=== PATIENT | male | born 1980 | race Caucasian/White ===

== ENCOUNTER 2017-05-16 17:35 | Emergency (ER) | payer SELFPAY | END 2017-05-16 20:00 | disposition left against medical advice (07) | LOC: FTE 17:35 | DX: Z53.21 Procedure and treatment not carried out due to patient leaving prior to being seen by health care provider (principal) ==

== ENCOUNTER 2017-05-16 23:29 | Emergency (ER) | payer MEDICAID ==
[2017-05-17] MEDS: LORAZEPAM 2 MG INJ IM (00:45)
[2017-05-17 01:23] LABS: ADD MAN DIFF? NO
[2017-05-17 01:25] LABS: ABNORMAL IP MESSAGE 1; BASOPHIL # 0.1 10^3/ul (0.0-0.1); BASOPHILS % 0.9 % (0.0-2.0); EOSINOPHILS # 0.3 10^3/ul (0.0-0.5); EOSINOPHILS % 2.7 % (0.0-7.0); HEMATOCRIT 44.9 % (42.0-52.0); HEMOGLOBIN 14.9 g/dl (14.0-18.0); LYMPHOCYTES # 5.5 10^3/ul (0.8-2.9); LYMPHOCYTES % 52.1 % (15.0-51.0); MEAN CORPUSCULAR HEMOGLOBIN 31.1 pg (29.0-33.0); MEAN CORPUSCULAR HGB CONC 33.2 g/dl (32.0-37.0); MEAN CORPUSCULAR VOLUME 93.7 fl (82.0-101.0); MEAN PLATELET VOLUME 9.2 fl (7.4-10.4); MONOCYTES % 9.4 % (0.0-11.0); NEUTROPHIL # 3.4 10^3/ul (1.6-7.5); NEUTROPHILS % 32.6 % (39.0-77.0); PLATELET COUNT 350 10^3/UL (140-415); POSITIVE DIFF @See below; RED BLOOD COUNT 4.79 10^6/ul (4.70-6.10); RED CELL DISTRIBUTION WIDTH 12.5 % (11.5-14.5)
[2017-05-17 01:25] LABS: WHITE BLOOD COUNT 10.5 10^3/ul (4.8-10.8)
[2017-05-17 01:31] LABS: AMPHETAMINE/METHAMPHETAMINE Negative (NEGATIVE)
[2017-05-17 01:32] LABS: BARBITURATES Negative (NEGATIVE); BENZODIAZEPINES Negative (NEGATIVE); CANNABINOIDS Negative (NEGATIVE); COCAINE Negative (NEGATIVE); OPIATES Negative (NEGATIVE)
[2017-05-17 01:43] LABS: ALANINE AMINOTRANSFERASE 43 IU/L (13-69); ALBUMIN 4.7 g/dl (3.3-4.9); ALBUMIN/GLOBULIN RATIO 1.14; ALKALINE PHOSPHATASE 128 IU/L (42-121); ANION GAP 19 (8-16); ASPARTATE AMINO TRANSFERASE 42 IU/L (15-46); BLOOD UREA NITROGEN 23 mg/dl (7-20); CALCIUM 9.1 mg/dl (8.4-10.2); CARBON DIOXIDE 22 mmol/L (21-31); CHLORIDE 110 mmol/L (97-110); CREATININE 0.95 mg/dl (0.61-1.24); GLUCOSE 110 mg/dl (70-220); POTASSIUM 3.8 mmol/L (3.5-5.1); SODIUM 147 mmol/L (135-144); TOTAL PROTEIN 8.8 g/dl (6.1-8.1)
[2017-05-17 02:38] LABS: ACETAMINOPHEN < 10.0 ug/ml (10.0-30.0); SALICYLATE < 1.0 mg/dl (5.0-30.0)
== END 2017-05-17 17:40 ==
LOC: E/R 23:29
DX: F10.920 Alcohol use, unspecified with intoxication, uncomplicated (principal)
CPT/HCPCS: 36415; 80053; 80306; 80307; 85025; 96372; 99285-25

== ENCOUNTER 2017-08-18 02:00 | Emergency (ER) | payer SELFPAY, MEDICAID | END 2017-08-18 02:15 | disposition left against medical advice (07) | LOC: E/R 02:00 | DX: Z53.21 Procedure and treatment not carried out due to patient leaving prior to being seen by health care provider (principal) ==

== ENCOUNTER 2017-09-04 22:04 | Emergency (ER) | payer MEDICAID ==
[2017-09-04] MEDS: HALOPERIDOL 5 MG INJ IM (23:25)
[2017-09-04] MEDS: DIPHENHYDRAMINE 50 MG INJ IM (23:42)
[2017-09-04 23:56] LABS: ADD MAN DIFF? NO
[2017-09-05] LABS: WHITE BLOOD COUNT 9.8 10^3/ul (4.8-10.8)
[2017-09-05] LABS: BASOPHIL # 0.1 10^3/ul (0.0-0.1); BASOPHILS % 0.6 % (0.0-2.0); EOSINOPHILS # 0.1 10^3/ul (0.0-0.5); EOSINOPHILS % 1.3 % (0.0-7.0); HEMATOCRIT 46.8 % (42.0-52.0); HEMOGLOBIN 15.7 g/dl (14.0-18.0); LYMPHOCYTES # 4.8 10^3/ul (0.8-2.9); LYMPHOCYTES % 49.1 % (15.0-51.0); MEAN CORPUSCULAR HEMOGLOBIN 30.5 pg (29.0-33.0); MEAN CORPUSCULAR HGB CONC 33.5 g/dl (32.0-37.0); MEAN CORPUSCULAR VOLUME 91.1 fl (82.0-101.0); MEAN PLATELET VOLUME 9.8 fl (7.4-10.4); MONOCYTES % 9.9 % (0.0-11.0); NEUTROPHIL # 3.8 10^3/ul (1.6-7.5); NEUTROPHILS % 38.6 % (39.0-77.0); PLATELET COUNT 310 10^3/UL (140-415); RED BLOOD COUNT 5.14 10^6/ul (4.70-6.10); RED CELL DISTRIBUTION WIDTH 11.9 % (11.5-14.5)
[2017-09-05 00:16] LABS: ALANINE AMINOTRANSFERASE 41 IU/L (13-69); ALBUMIN 4.5 g/dl (3.3-4.9); ALBUMIN/GLOBULIN RATIO 1.07; ALKALINE PHOSPHATASE 99 IU/L (42-121); ANION GAP 21 (8-16); ASPARTATE AMINO TRANSFERASE 32 IU/L (15-46); BILIRUBIN,INDIRECT 0.1 mg/dl (0-1.1); BILIRUBIN,TOTAL 0.1 mg/dl (0.2-1.3); BLOOD UREA NITROGEN 16 mg/dl (7-20); CALCIUM 9.2 mg/dl (8.4-10.2); CARBON DIOXIDE 23 mmol/L (21-31); CHLORIDE 112 mmol/L (97-110); CREATININE 1.22 mg/dl (0.61-1.24); GLUCOSE 123 mg/dl (70-220); SODIUM 152 mmol/L (135-144); TOTAL PROTEIN 8.7 g/dl (6.1-8.1)
[2017-09-05 00:52] LABS: ACETAMINOPHEN < 10.0 ug/ml (10.0-30.0)
[2017-09-05 00:53] LABS: SALICYLATE < 1.0 mg/dl (5.0-30.0)
== END 2017-09-05 18:53 | disposition home or self-care (01) ==
LOC: E/R 22:04
DX: F10.920 Alcohol use, unspecified with intoxication, uncomplicated (principal); R45.851 Suicidal ideations; R40.2142 Coma scale, eyes open, spontaneous, at arrival to emergency department; R40.2242 Coma scale, best verbal response, confused conversation, at arrival to emergency department; R40.2362 Coma scale, best motor response, obeys commands, at arrival to emergency department
CPT/HCPCS: 80053; 80307; 85025; 96372; 99284-25

== ENCOUNTER 2018-03-03 17:09 | Emergency (ER) | payer MEDICAID ==
[2018-03-03] MEDS: STERILE WATER 1L IRRIG BTL IRR (17:11)
[2018-03-03 17:41] LABS: ADD MAN DIFF? NO
[2018-03-03 17:45] LABS: BASOPHIL # 0.1 10^3/ul (0.0-0.1); BASOPHILS % 0.6 % (0.0-2.0); EOSINOPHILS # 0.2 10^3/ul (0.0-0.5); EOSINOPHILS % 2.5 % (0.0-7.0); HEMATOCRIT 47.7 % (42.0-52.0); LYMPHOCYTES # 3.8 10^3/ul (0.8-2.9); LYMPHOCYTES % 45.5 % (15.0-51.0); MEAN CORPUSCULAR HGB CONC 33.5 g/dl (32.0-37.0); MEAN CORPUSCULAR VOLUME 89.3 fl (82.0-101.0); MEAN PLATELET VOLUME 9.6 fl (7.4-10.4); MONOCYTE # 0.5 10^3/ul (0.3-0.9); MONOCYTES % 6.4 % (0.0-11.0); NEUTROPHIL # 3.7 10^3/ul (1.6-7.5); NEUTROPHILS % 44.6 % (39.0-77.0); PLATELET COUNT 304 10^3/UL (140-415); RED BLOOD COUNT 5.34 10^6/ul (4.70-6.10)
[2018-03-03 17:45] LABS: WHITE BLOOD COUNT 8.3 10^3/ul (4.8-10.8)
[2018-03-03] MEDS: DIPHENHYDRAMINE 50 MG INJ IM (17:45)
[2018-03-03] MEDS: HALOPERIDOL 5 MG INJ IM (17:45)
[2018-03-03 18:06] LABS: ALANINE AMINOTRANSFERASE 20 IU/L (13-69); ALBUMIN 4.9 g/dl (3.3-4.9); ALBUMIN/GLOBULIN RATIO 1.11; ALKALINE PHOSPHATASE 125 IU/L (42-121); ANION GAP 17 (5-13); ASPARTATE AMINO TRANSFERASE 31 IU/L (15-46); BILIRUBIN,INDIRECT 0.4 mg/dl (0-1.1); BILIRUBIN,TOTAL 0.4 mg/dl (0.2-1.3); BLOOD UREA NITROGEN 14 mg/dl (7-20); CALCIUM 9.7 mg/dl (8.4-10.2); CARBON DIOXIDE 22 mmol/L (21-31); CHLORIDE 107 mmol/L (97-110); CREATININE 0.86 mg/dl (0.61-1.24); Estimated GFR > 60 mL/min (>60); GLUCOSE 117 mg/dl (70-220); POTASSIUM 3.6 mmol/L (3.5-5.1); SODIUM 146 mmol/L (135-144); TOTAL PROTEIN 9.3 g/dl (6.1-8.1)
[2018-03-03 18:07] LABS: ACETAMINOPHEN < 10.0 ug/ml (10.0-30.0); SALICYLATE < 1.0 mg/dl (5.0-30.0)
[2018-03-03 18:22] LABS: ADD UMIC YES; UR ASCORBIC ACID NEGATIVE (NEGATIVE); UR BILIRUBIN (Dip) NEGATIVE (NEGATIVE); UR BLOOD (Dip) 1+ mg/dL (NEGATIVE); UR CLARITY CLEAR (CLEAR); UR COLOR COLORLESS (YELLOW); UR GLUCOSE (Dip) NEGATIVE (NEGATIVE); UR KETONES (Dip) NEGATIVE (NEGATIVE); UR LEUKOCYTE ESTERASE (Dip) NEGATIVE Leu/ul (NEGATIVE); UR NITRITE (Dip) NEGATIVE (NEGATIVE); UR RBC 0 /HPF (0-5); UR SPECIFIC GRAVITY (Dip) 1.002 (1.003-1.030); UR TOTAL PROTEIN (Dip) NEGATIVE (NEGATIVE); UR UROBILINOGEN (Dip) NEGATIVE (NEGATIVE); UR WBC 0 /HPF (0-5)
[2018-03-03 18:36] LABS: AMPHETAMINE/METHAMPHETAMINE Negative (NEGATIVE); BARBITURATES Negative (NEGATIVE); BENZODIAZEPINES Negative (NEGATIVE); CANNABINOIDS Negative (NEGATIVE); COCAINE Negative (NEGATIVE); OPIATES Negative (NEGATIVE)
[2018-03-03] MEDS: DIPHTH/TET/ACEL PERTUSS (ADULT) 0.5 ML VIAL IM* (18:39)
[2018-03-04] MEDS ORDERED: HALOPERIDOL 5 MG TAB PO (01:00)
[2018-03-04] MEDS: SOD CHLORIDE 0.9% 1,000 ML IV (01:15)
== END 2018-03-04 08:10 ==
LOC: E/R 03-04 08:10
DX: T14.91XA Suicide attempt, initial encounter (principal); F33.9 Major depressive disorder, recurrent, unspecified; F10.10 Alcohol abuse, uncomplicated; W26.9XXA Contact with unspecified sharp object(s), initial encounter; Y92.9 Unspecified place or not applicable; Z23 Encounter for immunization
CPT/HCPCS: 12001; 36415; 80053; 80307; 81001; 85025; 90471; 90715; 96372; 99285-25

== ENCOUNTER 2018-05-02 17:06 | Emergency (ER) | payer MEDICAID ==
[2018-05-02 17:41] LABS: HEMATOCRIT 46.7 % (42.0-52.0); HEMOGLOBIN 15.6 g/dl (14.0-18.0); MEAN CORPUSCULAR HEMOGLOBIN 29.9 pg (29.0-33.0); MEAN CORPUSCULAR HGB CONC 33.4 g/dl (32.0-37.0); MEAN CORPUSCULAR VOLUME 89.6 fl (82.0-101.0); MEAN PLATELET VOLUME 9.1 fl (7.4-10.4); PLATELET COUNT 360 10^3/UL (140-415); RED BLOOD COUNT 5.21 10^6/ul (4.70-6.10)
[2018-05-02 17:41] LABS: WHITE BLOOD COUNT 8.3 10^3/ul (4.8-10.8)
[2018-05-02 17:45] LABS: ADD MAN DIFF? YES
[2018-05-02 18:14] LABS: ALANINE AMINOTRANSFERASE 26 IU/L (13-69); ALBUMIN/GLOBULIN RATIO 1.21; ALKALINE PHOSPHATASE 143 IU/L (42-121); ANION GAP 18 (5-13); ASPARTATE AMINO TRANSFERASE 47 IU/L (15-46); BILIRUBIN,INDIRECT 0.2 mg/dl (0-1.1); BILIRUBIN,TOTAL 0.2 mg/dl (0.2-1.3); BLOOD UREA NITROGEN 15 mg/dl (7-20); CALCIUM 9.2 mg/dl (8.4-10.2); CARBON DIOXIDE 21 mmol/L (21-31); CHLORIDE 106 mmol/L (97-110); CREATININE 0.97 mg/dl (0.61-1.24); Estimated GFR > 60 mL/min (>60); GLUCOSE 101 mg/dl (70-220); POTASSIUM 3.8 mmol/L (3.5-5.1); SODIUM 145 mmol/L (135-144); TOTAL PROTEIN 9.1 g/dl (6.1-8.1)
[2018-05-02 18:20] LABS: ACETAMINOPHEN < 10.0 ug/ml (10.0-30.0); SALICYLATE < 1.0 mg/dl (5.0-30.0)
[2018-05-02] MEDS: DIPHENHYDRAMINE 50 MG INJ IM (18:38)
[2018-05-02] MEDS: HALOPERIDOL 5 MG INJ IM (18:38)
[2018-05-02] MEDS: DEXTROSE 5%-LR 1,000 ML IV (18:38)
[2018-05-02 18:40] LABS: BASOPHIL #M 0.1 10^3/ul (0.0-0.0); BASOPHILS % (M) 2 % (0-2); EOSINOPHILS % (M) 2 % (0-7); GIANT THROMBO% (M) 1 % (0-0); LYMPHOCYTES #M 5.4 10^3/ul (0.8-2.9); LYMPHOCYTES % (M) 66 % (15-51); METAMYELOCYTES #M 0.1 10^3/ul (0.0-0.0); METAMYELOCYTES %M 2 % (0-0); MONOCYTE #M 0.3 10^3/ul (0.3-0.9); MONOCYTES % (M) 4 % (0-11); MYELOCYTES % (M) 1 % (0-0); PLATELET ESTIMATE NORMAL; REACTIVE LYMPHOCYTES #M 0.1 10^3/ul (0.0-0.0); REACTIVE LYMPHOCYTES% (M) 2 % (0-0); SEGMENTED NEUTROPHILS (M) % 21 % (39-77); SMUDGE%M 3 % (0-0)
[2018-05-02] MEDS ORDERED: MULTIVITAMINS 10 ML, THIAMINE 100 MG, FOLIC ACID 1 MG, MAGNESIUM SULFATE 2 GM in SOD CH... IV (19:30)
[2018-05-02] MEDS: MULTIVITAMINS 10 ML, FOLIC ACID 1 MG, MAGNESIUM SULFATE 2 GM in SOD CHLORIDE 0.9% 1,000 ML IV (19:40)
[2018-05-03] MEDS: DEXTROSE 5%-LR 1,000 ML IV ×4 (09:00→15:00)
[2018-05-03] MEDS: LORAZEPAM 2 MG INJ IV (21:47)
[2018-05-03] MEDS ORDERED: LORAZEPAM 1 MG TAB PO (22:00)
[2018-05-04 08:29] LABS: ETHANOL < 10.0 mg/dl (0-0)
== END 2018-05-04 10:44 | disposition home or self-care (01) ==
LOC: E/R 17:06
DX: R45.851 Suicidal ideations (principal); F10.920 Alcohol use, unspecified with intoxication, uncomplicated; R45.1 Restlessness and agitation; R40.2242 Coma scale, best verbal response, confused conversation, at arrival to emergency department; R40.2362 Coma scale, best motor response, obeys commands, at arrival to emergency department; R40.2142 Coma scale, eyes open, spontaneous, at arrival to emergency department
CPT/HCPCS: 80053; 80307; 85025; 96372; 96374; 99284-25